=== PATIENT | male | born 1970 | race Caucasian/White ===

== ENCOUNTER 2019-10-02 08:47 | Inpatient (IN) ==
[2019-09-24 15:32] LABS: Appearance,Urine CLEAR; Bilirubin,Urine NEG (NEG); Color,Urine YELLOW; Culture Indicated,Urine NO; Glucose,Urine (UA) NEGATIVE (NEG); Ketones,Urine 5/TR mg/dL (NEG); Leukocyte Esterase,Urine NEG /uL (NEG); Nitrate,Urine NEG (NEG); Protein,Urine NEG (NEG); Specific Gravity,Urine 1.024 (1.000-1.035); Urine Blood NEG mg/dL (<0.03); Urobilinogen,Urine NEG (NEG)
[2019-09-24 19:28] LABS: Basophils # (Auto) 0 K/mcL (0.0-0.3); Basophils % (Auto) 0.9 % (0.0-2.0); Eosinophils # (Auto) 0.1 K/mcL (0.0-0.7); Eosinophils % (Auto) 1.2 % (0.0-7.0); Hematocrit 40.6 % (41.0-55.0); Hemoglobin 13.7 g/dL (13.5-16.5); Lymphocytes # (Auto) 1.8 K/mcL (1.5-4.8); Lymphocytes % (Auto) 32.1 % (15.5-49.0); Mean Cell Volume 89.5 fL (80.0-100.0); Mean Corpuscular HGB Conc 33.7 g/dL (31.0-36.0); Mean Platelet Volume 9.3 fL (7.4-10.4); Monocytes # (Auto) 0.3 K/mcL (0.1-0.9); Monocytes % (Auto) 4.8 % (1.0-12.0); Platelet Count 209 K/mcL (140-440); RBC 4.54 M/mcL (4.50-5.90); Red Cell Distribution Width 12.3 % (11.5-14.5); WBC 5.6 K/mcL (4.5-11.0)
[2019-09-24 20:24] LABS: Blood Urea Nitrogen 16 mg/dl (6-20); Calcium 9.6 mg/dl (8.6-10.4); Carbon Dioxide 25 mmol/L (22-30); Chloride 99 mmol/L (96-108); Glomerular Filtration Rate 89; Glucose 98 mg/dL (70-105)
[~2019-10-02 08:47] MED LIST: CELECOXIB 200 MG CAPSULE PO SCH; IPRATROPIUM/ALBUTEROL 3 ML AMPUL.NEB NEB PRN; PREGABALIN 75 MG CAPSULE PO SCH; SCOPOLAMINE 1 PATCH PATCH TOPICAL PRN; ceFAZolin 2 GM in DEXTROSE 5% IN WATER 50 ML IV SCH; oxyCODONE 10 MG TAB.ER.12H PO SCH
[2019-10-02] MEDS ORDERED: fentaNYL 100 MCG/2 ML VIAL IV ONE (12:30)
[2019-10-02] MEDS ORDERED: SUGAMMADEX SODIUM 200 MG/2 ML VIAL IV ONE (12:30)
[2019-10-02] MEDS ORDERED: ONDANSETRON 4 MG/2 ML VIAL ONE (12:30)
[2019-10-02] MEDS ORDERED: ROCURONIUM 10 MG/ML ML IV ONE (12:30)
[2019-10-02] MEDS ORDERED: LIDOCAINE HCL/PF 100 MG/5 ML SYRINGE IV ONE (12:30)
[2019-10-02] MEDS ORDERED: GLYCOPYRROLATE 0.2 MG/ML VIAL IV ONE (12:30)
[2019-10-02] MEDS ORDERED: PROPOFOL 200 MG/20 ML VIAL IV ONE (12:30)
[2019-10-02] MEDS ORDERED: ePHEDrine 50 MG/ML AMPUL IV ONE (12:30)
[2019-10-02] MEDS ORDERED: DEXAMETHASONE 10 MG/ML VIAL ONE (12:30)
[2019-10-02] MEDS ORDERED: PHENYLEPHRINE 10 MG/ML VIAL ONE (12:30)
[2019-10-02] MEDS ORDERED: KETAMINE 10 MG/ML ML ONE (12:30)
[2019-10-02] MEDS ORDERED: GENTAMICIN SULFATE 800 MG/20 ML VIAL IR ONE (13:08)
[2019-10-02] MEDS ORDERED: KETOROLAC 30 MG/ML VIAL IV PRN ×2 (13:51→14:29)
[2019-10-02] MEDS ORDERED: MEPERIDINE 25 MG/ML SYRINGE IV PRN (13:51)
[2019-10-02] MEDS ORDERED: ATROPINE SULFATE 0.4 MG/ML VIAL IV PRN (13:51)
[2019-10-02] MEDS ORDERED: NALOXONE HCL 0.4 MG/ML VIAL IV PRN (13:51)
[2019-10-02] MEDS ORDERED: METHOCARBAMOL 1,000 MG/10 ML VIAL IV PRN (13:51)
[2019-10-02] MEDS ORDERED: diphenhydrAMINE 50 MG/ML VIAL IV PRN (13:51)
[2019-10-02] MEDS ORDERED: ACETAMINOPHEN 1,000 MG/100 ML BOTTLE IV ONE (13:51)
[2019-10-02] MEDS ORDERED: METOPROLOL TARTRATE 5 MG/5 ML VIAL IV PRN (13:51)
[2019-10-02] MEDS ORDERED: IPRATROPIUM/ALBUTEROL 3 ML AMPUL.NEB NEB PRN (13:51)
[2019-10-02] MEDS ORDERED: ONDANSETRON 4 MG/2 ML VIAL IV PRN ×2 (13:51→14:29)
[2019-10-02] MEDS ORDERED: ePHEDrine 50 MG/ML AMPUL IV PRN (13:51)
[2019-10-02] MEDS ORDERED: LACTATED RINGERS 1,000 ML IV SCH (14:00)
--- NOTE | 2019-10-02 14:27 | Brief Operative Note ---
Date of procedure: 10/02/19 Pre-op diagnosis: right shoulder osteoarthritis, biceps tendonitis, rtc tear Post-op diagnosis: same Procedure: right reverse tsa, biceps tenodesis Grafts/Implants: Yes Anesthesia: GETA Complications: none Surgeon: Louis Pineda Grocery Worker: Dolores Powers Estimated blood loss (cc): 150 Specimens Removed/Pathology: none sent Condition: stable Disposition: PACU
[2019-10-02] MEDS ORDERED: TRANEXAMIC ACID 1,000 MG/10 ML VIAL IV ONE (14:29)
[2019-10-02] MEDS ORDERED: BISACODYL 10 MG SUPP.RECT PR PRN (14:29)
[2019-10-02] MEDS ORDERED: MAGNESIUM HYDROXIDE 30 ML ORAL.SUSP PO PRN (14:29)
[2019-10-02] MEDS ORDERED: METHOCARBAMOL 750 MG TABLET PO PRN (14:29)
[2019-10-02] MEDS ORDERED: BENZOCAINE/MENTHOL 1 LOZENGE PO PRN (14:29)
[2019-10-02] MEDS ORDERED: FLEETS ADULT ENEMA PR PRN (14:29)
[2019-10-02] MEDS ORDERED: POLYETHYLENE GLYCOL 3350 17 GM PACKET PO PRN (14:29)
--- NOTE | 2019-10-02 14:29 | Discharge Summary ---
Ortho Discharge - TSA - Patient Instructions Diet: Regular Diet Activity: non weight bearing Total Shoulder Protocol: Leave immobilizer in place except for bathing and ROM. Abduction pillow. Continue to wear sling until seen by physician. Codman Pendulum : These exercises use momentum produced by your body to move your shoulder joint. Bend your knees and shift your weight to your front leg, then back, allowing your arm to swing in the same directions. Using the same technique, alternately shift your weight between your right and left legs, allowing your arm to swing from side to side. These exercises are also performed in counterclockwise and clockwise circular motions. Typically these exercises are performed several times per day, for a set number repetitions or minutes, such as 20 times in a row or 5 minutes at a time. Dressing Care: May shower in 2 days - Follow Up Plan Disposition: Home, Self-Care Prognosis: Good Rehab Potential: Good I certify that the patient requires SNF services: No Overall status at discharge: patient is progressing back to baseline
[2019-10-02] MEDS ORDERED: CYCLOBENZAPRINE 10 MG TABLET PO PRN (14:32)
[2019-10-02] MEDS: fentaNYL 100 MCG/2 ML VIAL IV PRN ×4 (15:05→15:30)
[2019-10-02] MEDS ORDERED: METHOCARBAMOL 1,000 MG/10 ML VIAL IV ONE (15:29)
--- NOTE | 2019-10-02 15:31 | Operative Note ---
DATE OF OPERATION: 10/02/2019 PREOPERATIVE DIAGNOSES: 1. Right shoulder osteoarthritis. 2. Right shoulder rotator cuff tear. 3. Right shoulder proximal biceps tendonitis. POSTOPERATIVE DIAGNOSES: 1. Right shoulder osteoarthritis. 2. Right shoulder rotator cuff tear. 3. Right shoulder proximal biceps tendonitis. PROCEDURE: 1. Right reverse total shoulder arthroplasty. 2. Right shoulder soft tissue biceps tenodesis. SURGEON: Corie Pineda M.D. [employer] SURGEON: Dolores Powers PA-C. This provider's expertise and technical skill were required throughout the case. The PA assisted with preoperative coordination, intraoperative retraction, wound closure, dressing and splint application, as well as postoperative documentation and care coordination. ANESTHESIA: General. ESTIMATED BLOOD LOSS: 150 mL COMPLICATIONS: None noted. SPECIMENS REMOVED: None. DRAINS: None. IMPLANTS: DePuy Delta Xtend cementless metaglene, DePuy Delta Xtend locking metaglene screw 4.5 x 30 x2, 4.5 x 24 x1, 4.5 nonlocking x 18 x1, DePuy Delta Xtend glenosphere eccentric 38 mm, DePuy Delta Xtend modular humeral stem ROBERTSON coated cementless size 14, DePuy Delta Xtend modular eccentric epiphysis size 2, right ROBERTSON coated cementless, DePuy Delta Xtend humeral polyethylene cup 38 +6 standard. INDICATIONS: The patient has had a longstanding history of alcaptonuria and severe osteoarthritis in his right shoulder. He has failed conservative treatment. Radiographs have confirmed advanced degenerative joint disease and MRI has demonstrated a rotator cuff tear. After a long discussion about treatment options, the patient elected to proceed with a total shoulder arthroplasty, possible reverse total shoulder arthroplasty. The risks and benefits were discussed with the patient in detail including, but not limited to, the risks of anesthesia, problems with the heart or lungs related to anesthesia, infection, compromise or injury to the nerves and blood vessels, deep venous thrombosis, pulmonary embolism, pneumonia, continued pain after surgery, worsening pain or symptoms after surgery, swelling, loss of motion, instability, fracture, arm length discrepancy, and need for repeat surgery. DESCRIPTION OF PROCEDURE: The patient was seen in the preanesthesia waiting room where all questions were answered and the correct side and site were identified and marked. The patient was transferred to the operating room and administered the anesthetic and given preoperative antibiotics. A time-out was then called. The patient was placed in the modified beach chair position with all prominences well padded. The extremity was prepped and draped from the fingers up to the neck. A standard deltopectoral skin incision was created. Dissection was carried down to the deltopectoral groove and the cephalic vein was isolated medially and retracted laterally with the deltoid. Retractors were placed and the coracobrachialis was split up to the coracoacromial ligament allowing retraction of the conjoined tendon. We split the subscapularis 1 cm medial to the bicipital groove and extended the split into the rotator interval. This was tagged for later repair. The supraspinatus and infraspinatus had been previously torn and retracted. I did check the tendon and it was mobile but in poor condition, so I elected to proceed with a reverse rather than a total shoulder arthroplasty. Due to his alcaptonuria, the tissue was compromised. The biceps was cut and a soft tissue tenodesis was performed into the anterior shoulder with #2 FiberWire. A capsular release was performed in a posterior subperiosteal direction along the humerus. The humeral head was then dislocated. There was a significant black appearance to the bone consistent with his alcaptonuria. We established intramedullary access and hand reamed up to get good cortical chatter with the DePuy Delta XTEND reverse total shoulder instrumentation. We then used the intramedullary guide and set to about 5 degrees of retroversion. The proximal humerus cut was performed and osteophytes were removed. A metal protector plate was then placed. Attention was then turned to the glenoid. Retractors were placed for optimal visualization and the labrum was excised in its entirety. It was a black margin along the superior rim. On the undersurface of the glenoid, there was some excess bone as well as tight soft tissue, so I carefully debrided this with electrocautery and a rongeur protecting the axillary nerve. A centralizing Steinmann pin was placed just into the posterior inferior quadrant in a standard fashion. We reamed over the pin to remove all the cartilage and get to a good base for the prosthesis. The drill was then placed over for the central peg. A cementless Metaglene was then impacted into place. We then drilled, measured, and placed the four screws starting inferior, then superior, then anterior, and finally posterior. The superior locking screw was lined up at the base of the coracoid process. We then impacted the head onto the Metaglene and tightened down in a standard fashion. Attention was then turned back to the humerus. Proximal reaming was performed off the intramedullary guide into the humeral head, using the eccentric guide to allow best coverage. We again set version and broached up to a stable implant. Trials were placed and good tension, motion, and stability were obtained at this point. Trials were removed and the final press fit femoral prosthesis was impacted into place with measured version. The final polyethylene was placed and the shoulder was reduced and again checked for motion, tension, and stability. We irrigated with 3 liters of antibiotic saline and closed the subscapularis with # 2 FiberWire. We irrigated again and closed the deltopectoral interval with several # 0 Vicryl figure of eight sutures. The subcutaneous layer was closed with 2-0 Vicryl and the skin was closed with 4-0 Monocryl in a subcuticular fashion. A sterile pressure dressing was applied and the patient was placed into an abduction sling. All needle and sponge counts were correct. The patient was transferred to the recovery room in stable condition. TACHO:kalli Job ID: [id number] Doc ID: [id number] Corie Pineda MD
[2019-10-02] MEDS: HYDROmorphone 2 MG/ML VIAL IV PRN ×2 (15:35→15:46)
[2019-10-02] MEDS: LACTATED RINGERS 1,000 ML IV SCH ×2 (16:15→19:26)
--- NOTE | 2019-10-02 16:28 | XRay Report ---
CLINICAL INFORMATION: Post-OP Total Shoulder COMPARISON: None. FINDINGS: Total shoulder prosthesis is anatomically aligned without osseous abnormality. Soft tissue swelling and gas seen as expected. IMPRESSION: Negative Interpreted and Authenticated by: Louis Perry 10/02/19
[2019-10-02] MEDS: ceFAZolin 1 GM VIAL IV SCH (20:47)
[2019-10-02] MEDS: METHADONE 5 MG TABLET PO SCH (20:49)
[2019-10-02] MEDS: DOCUSATE SODIUM 100 MG CAPSULE PO SCH (20:49)
[2019-10-02] MEDS: DULoxetine 30 MG CAPSULE PO SCH (20:49)
[2019-10-02] MEDS: oxyCODONE HCL 5 MG TABLET PO PRN (20:50)
[2019-10-02] MEDS ORDERED: SENNOSIDES 1 TABLET PO SCH (21:00)
[2019-10-02] MEDS ORDERED: LISINOPRIL 5 MG TABLET PO SCH (21:00)
[2019-10-02] MEDS: 0.9 % SODIUM CHLORIDE 10 ML SYRINGE IV SCH (22:02)
[2019-10-03] MEDS: oxyCODONE HCL 5 MG TABLET PO PRN ×2 (02:05→11:27)
[2019-10-03] MEDS: LACTATED RINGERS 1,000 ML IV SCH ×2 (02:09→07:58)
[2019-10-03] MEDS: ceFAZolin 1 GM VIAL IV SCH (03:45)
[2019-10-03] MEDS: 0.9 % SODIUM CHLORIDE 10 ML SYRINGE IV SCH ×2 (03:46→05:53)
[2019-10-03] MEDS ORDERED: VITAMIN D3 5,000 UNIT CAPSULE PO SCH (09:00)
[2019-10-03] MEDS: DOCUSATE SODIUM 100 MG CAPSULE PO SCH (09:12)
[2019-10-03] MEDS: DULoxetine 30 MG CAPSULE PO SCH (09:12)
[2019-10-03] MEDS: METHADONE 5 MG TABLET PO SCH (09:12)
--- NOTE | 2019-10-03 09:17 | Orthopedic Progress Note ---
Subjective Patient information: Note initiated : 10/03/19 at 9:17 am Service Date, if different from initiated Date: [] Patient: Samuel Mon 49 y/o M admitted on 10/02/19 for Right Total Shoulder arthroplasty and right shoulder proximal biceps tenodesis. Pt doing well this AM. Denies fevers/chills, N/V, CP, SOB, numbness/tingling. His pain is managed. Chief Complaint: Right shoulder pain. Pertinent ROS: negative except as in HPI. Objective Vital signs: Vital Signs Temp Pulse Resp BP Pulse Ox 10/03/19 07:45 85 16 95 10/03/19 04:02 97.5 F 82 16 102/68 95 10/02/19 23:14 97.4 F 80 16 101/58 94 10/02/19 19:28 98.3 F 93 H 16 110/67 94 10/02/19 19:08 107 H 109/62 92 10/02/19 18:08 103 H 124/67 94 10/02/19 17:39 98 H 118/62 93 10/02/19 17:09 106 H 103/65 91 10/02/19 16:53 100 H 122/62 92 10/02/19 16:38 94 H 121/72 96 10/02/19 16:23 98 H 107/68 91 10/02/19 16:09 92 H 101/64 95 10/02/19 15:57 98.5 F 86 15 109/61 99 10/02/19 15:47 88 17 119/62 98 10/02/19 15:32 74 12 115/70 99 10/02/19 15:17 80 17 117/58 95 10/02/19 15:02 73 10 L 124/68 99 10/02/19 14:57 67 20 124/64 100 10/02/19 14:52 76 15 122/67 100 10/02/19 14:47 97.5 F 75 10 L 102/69 98 Intake and Output 10/02/19 10/03/19 10/03/19 21:59 05:59 13:59 Intake Total 3148 1200 240 Output Total 950 100 475 Balance 2198 1100 -235 Intake: IV 548 1000 Lactated Ringers 1,000 ml @ 980 140 9187 mls/hr IV .Q8H JONN Rx#: [id number] Ancef 2 gm In Dextrose 5% in 50 Water 50 ml @ 100 mls/hr IV PREOP JONN Rx#:[id number] Oral 200 240 IV - Manual Only 2600 Output: Void Amount 850 100 475 Estimated Blood Loss 100 Other: Meal Breakfast Percent of Meal Consumed 100% Feeding Ability Assist with Tray Set Up Urine Appearance Clear Clear Urine Color Tea Colored Dark Yellow Urine Odor Normal # Voids 1 Weight 252 lb 1.6 oz Intake & Output: Intake & Output 10/02/19 10/03/19 10/03/19 21:59 05:59 13:59 Intake Total 3148 1200 240 Output Total 950 100 475 Balance 2198 1100 -235 Weight 252 lb 1.6 oz Intake: IV 548 1000 Lactated Ringers 1,000 ml @ 500 794 4879 mls/hr IV .Q8H JONN Rx#: [id number] Ancef 2 gm In Dextrose 5% in 50 Water 50 ml @ 100 mls/hr IV PREOP JONN Rx#:[id number] Oral 200 240 IV - Manual Only 2600 Output: Void Amount 850 100 475 Estimated Blood Loss 100 Other: Meal Breakfast Percent of Meal Consumed 100% Feeding Ability Assist with Tray Set Up Urine Appearance Clear Clear Urine Color Tea Colored Dark Yellow Urine Odor Normal # Voids 1 Incision: Yes healing, No draining, No red, No swollen, No inflamed, Yes clean and dry Incision clean and dry: No Dressing: Yes clean, Yes dry, Yes intact Weight bearing status: non (RUE) Neurological exam IM: Yes alert, Yes oriented X3, Yes neurovascular intact Extremities exam IM: Yes normal capillary refill, Yes normal inspection, Yes neurovascular intact - Labs CBC & BMP: 09/24/19 13:40 09/24/19 13:39 Labs: 10/03/19 09/24/19 05:01 13:40 Hgb Pending 13.7 Hct Pending 40.6 L Assessment and Plan (1) Status post reverse total arthroplasty of right shoulder Status: Acute - Narrative A/P Narrative: Pt is a 49 yo male POD#1 s/p right revers TSA and proximal biceps tenodesis with Dr. Pineda. -PT/OT: activity as tolerated. NWB with RUE, remain in pillow sling at all times. -continue pain meds -continue diet -prophy: ambulation, SCDs -dispo: home today, followup with ortho in 10-14 days.
== END 2019-10-03 12:55 | disposition home or self-care (01) | DRG 483 ==
LOC: MEDSUR 08:47
PROVIDERS: ADMIT Orthopaedic Surgery Sports Medicine; ATTEND Orthopaedic Surgery Sports Medicine